=== PATIENT | female | born 1995 | race African-American/Black ===

== ENCOUNTER 2017-03-06 16:30 | Emergency (ER) | payer MEDICAID ==
[~2017-03-06] VITALS: Ht 182.9 cm; Wt 91.0 kg
[2017-03-06] MEDS ORDERED: KETOROLAC 60MG/2ML VIAL IM ONE (22:15)
[2017-03-06 23:00] VITALS: BP 106/67
== END 2017-03-06 23:00 | disposition home or self-care (01) ==
LOC: ER 22:07
DX: S39.012A Strain of muscle, fascia and tendon of lower back, initial encounter (principal); F12.10 Cannabis abuse, uncomplicated; V49.9XXA Car occupant (driver) (passenger) injured in unspecified traffic accident, initial encounter; Y93.89 Activity, other specified; Y92.89 Other specified places as the place of occurrence of the external cause; Y99.8 Other external cause status
CPT/HCPCS: 81025; 96372; 99283; J1885